=== PATIENT | female | born 1985 | race African-American/Black ===

== ENCOUNTER 2019-11-30 10:13 | Emergency (ER) | payer OTHER ==
--- NOTE | 2019-11-30 11:15 | EDM.PDOC ---
ED HPI GENERAL MEDICAL PROBLEM - General Chief Complaint: Respiratory Problem Stated Complaint: FEVER,SORE THROAT,COUGH Time Seen by Provider: 11/30/19 10:45 Source of Information: Reports: Patient, RN Notes Reviewed ([phone]) - History of Present Illness INITIAL COMMENTS - FREE TEXT/NARRATIVE: 34 year old female comes in with cough, grant, sore throat for the past 5 to 7 days. No fever, occasional mild chills, occasional Wayne. Her throat did hurt to swallow, no better. About 36 days . No known covid exposure. 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 Musculoskeletal History: Reports: None Neurological History: Reports: None Psychiatric History: Reports: None Endocrine/Metabolic History: Reports: None Hematologic History: Reports: None Immunologic History: Reports: None Oncologic (Cancer) History: Reports: None Dermatologic History: Reports: None - Infectious Disease History Infectious Disease History: Reports: None - Past Surgical History Female Surgical History: Reports: Section Social & Family History - Tobacco Use Smoking Status *Q: Never Smoker - Caffeine Use Caffeine Use: Reports: Tea - Recreational Drug Use Recreational Drug Use: No ED ROS GENERAL - Review of Systems Review Of Systems: See Below Constitutional: Reports: Chills. Denies: Fever HEENT: Reports: Rhinitis, Throat Pain Respiratory: Reports: Cough. Denies: Shortness of Breath Cardiovascular: Denies: Chest Pain GI/Abdominal: Reports: Nausea. Denies: Abdominal Pain, Vomiting Musculoskeletal: Reports: No Symptoms Skin: Reports: No Symptoms Neurological: Reports: Headache (gone) ED EXAM, GENERAL - Physical Exam Exam: See Below General Appearance: Alert, No Apparent Distress Eye Exam: Bilateral Eye: PERRL Throat/Mouth: Normal Inspection Head: Atraumatic Neck: Supple Respiratory/Chest: No Respiratory Distress, Lungs Clear, Normal Breath Sounds. No: Wheezing Cardiovascular: Regular Rate, Rhythm GI/Abdominal: Non-Tender, Other (appropriately distended) Extremities: No: Leg Pain Neurological: Alert, No Motor/Sensory Deficits Skin Exam: Warm, Dry Course - Vital Signs Last Recorded V/S: Last Vital Signs Temp 98.2 F 11/30/19 10:30 Pulse 85 11/30/19 10:30 Resp 16 11/30/19 10:30 BP 113/77 11/30/19 10:30 Pulse Ox 100 11/30/19 10:30 - Orders/Labs/Meds Orders: Active Orders 24 hr Category Date Time Status CORONAVIRUS COVID-19 PCR PHL [MREF] Routine Lab 11/30/19 11:15 Received Isolation [COMM] Routine Oth 11/30/19 11:04 Ordered - Re-Assessments/Exams Free Text/Narrative Re-Assessment/Exam: 11/30/19 14:30 Rapid strep pos., influenza screen neg. Because of her and URI sx in addition to sore throat have done a covid screen. Discharge instr. as documented. Departure - Departure Time of Disposition: 11:38 Disposition: Home, Self-Care 01 Condition: Fair Clinical Impression: Pharyngitis, Upper respiratory infection, Third trimester - Discharge Information Prescriptions: Penicillin V Potassium 500 mg PO Q8HR #30 tab Instructions: Third Trimester of , [id number], Upper Respiratory Infection, Adult, [id number], Pharyngitis, [id number] Referrals: Juliette Lancaster MD [Primary Care Provider] - Forms: ED Department Discharge Additional Instructions: Rest, drink plenty of fluids, your strep screen today was positive. PenVK 500 mg 3 times daily. That prescription has been sent electronically to [facility]. To be safe a Covid screen has been done to check for the covid virus. That will be sent later today to the [facility]. results may be back as soon as later tomorrow but more likely Sunday or . and you will be called results when available. Follow up clinic as needed , return to ED as needed if symptoms worsening in any way. Sepsis Event Note - Evaluation Sepsis Screening Result: No Definite Risk - Focused Exam Vital Signs: Vital Signs Temp Pulse Resp BP Pulse Ox 11/30/19 10:30 98.2 F 85 16 113/77 100 Date Exam was Performed: 11/30/19 Time Exam was Performed: 14:27 - My Orders Last 24 Hours: My Active Orders 11/30/19 11:04 Isolation [COMM] Routine 11/30/19 11:15 CORONAVIRUS COVID-19 PCR PHL [MREF] Routine - Assessment/Plan Last 24 Hours: My Active Orders 11/30/19 11:04 Isolation [COMM] Routine 11/30/19 11:15 CORONAVIRUS COVID-19 PCR PHL [MREF] Routine
== END 2019-11-30 12:25 | disposition home or self-care (01) ==
LOC: JD.ED 10:13
DX: O99.511 Diseases of the respiratory system complicating pregnancy, first trimester (principal); J02.9 Acute pharyngitis, unspecified; Z3A.01 Less than 8 weeks gestation of pregnancy; Z20.828 Contact with and (suspected) exposure to other viral communicable diseases
CPT/HCPCS: 87430; 87804; 99283; U0002

== ENCOUNTER 2019-12-15 10:47 | Inpatient (IN) | payer OTHER ==
[2019-12-15] MEDS ORDERED: Sodium Chloride 0.9% 10 ML Syringe FLUSH PRN (10:50)
[2019-12-15] MEDS ORDERED: Citric Acid/Sodium Citrate Solution 30 ML Cup PO ONE (10:50)
[2019-12-15] MEDS ORDERED: ceFAZolin 2 GM in Premix Bag 1 BAG IV ONE (10:50)
[2019-12-15] MEDS ORDERED: Metoclopramide 10 MG/2 ML SDV IVPUSH ONE (10:50)
--- NOTE | 2019-12-15 10:58 | PCM.LDHP ---
L&D History of Present Illness - General Date of Service: 12/15/19 Admit Problem/Dx: Patient Status Order with Admit Dx/Problem 12/15/19 10:50 Patient Status [ADT] Routine Admission Diagnosis/Problem Admission Diagnosis/Problem Decreased movement affecting management of mother, antepartum Source of Information: Patient History Limitations: Reports: No Limitations - History of Present Illness Introduction:: Patient is a 34 y/o at 38 2/7 wks who presents for due to persistent decreased FM and non reactive NST in clinic. Last week Sunday seen on L&D for concerns of decreased FM. NST eventually reactive. However, patient still had decreased FM over the weekend. 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: Ectopic , : 4 Para: 2 LMP (Approximate): - Past Surgical History Female Surgical History: Reports: Section (x2) Social & Family History - Tobacco Use Smoking Status *Q: Never Smoker - Caffeine Use Caffeine Use: Reports: Tea - Alcohol Use Alcohol Use History: No - Recreational Drug Use Recreational Drug Use: No H&P Review of Systems - Review of Systems: Review Of Systems: See Below General: Reports: No Symptoms Pulmonary: Reports: No Symptoms Cardiovascular: Reports: No Symptoms Gastrointestinal: Reports: No Symptoms Genitourinary: Reports: No Symptoms Musculoskeletal: Reports: No Symptoms Psychiatric: Reports: No Symptoms Neurological: Reports: No Symptoms L&D Exam - Exam Exam: See Below - OB Specific Heart Tones: Present Heart Tones per Min: 130 Heart Rate (FHR) Variability: Moderate (6-25 bmp) Presentation: Unable to Assess - Exam General: Alert, Oriented, Cooperative Lungs: Clear to Auscultation, Normal Respiratory Effort Cardiovascular: Regular Rate, Regular Rhythm GI/Abdominal Exam: Soft, Non-Tender Genitourinary: Normal external exam Extremities: Normal Inspection Skin: Warm, Dry, Intact - Problem List (1) 38 weeks gestation of SNOMED Code(s): 50152639 ICD Code: Z3A.38 - 38 WEEKS GESTATION OF Status: Acute Current Visit: Yes (2) Decreased movement SNOMED Code(s): 164792906 ICD Code: O36.8190 - DECREASED MOVEMENTS, UNSP TRIMESTER, UNSP Status : Acute Current Visit: Yes Qualifiers: Fetus number: single or unspecified fetus Trimester: third trimester Qualified Code(s): O36.8130 - Decreased movements, third trimester, not applicable or unspecified (3) Non-reactive NST (non-stress test) SNOMED Code(s): 579556358, 497014138 ICD Code: O28.8 - OTHER ABNORMAL FINDINGS ON SCREENING OF MOTHER Status: Acute Current Visit: Yes Problem List Initiated/Reviewed/Updated: Yes Orders Last 24hrs: Active Orders 24 hr Category Date Time Status Patient Status [ADT] Routine ADT 12/15/19 10:50 Ordered Communication Order [RC] ROUTINE Care 12/15/19 10:50 Ordered Heart Tones [RC] PER UNIT ROUTINE Care 12/15/19 10:50 Ordered Non Stress Test [RC] PER UNIT ROUTINE Care 12/15/19 10:50 Ordered Peripheral IV Care [RC] . DIRECTED Care 12/15/19 10:51 Ordered Procedure Site Prep Instruct [RC] ASDIRECTED Care 12/15/19 10:50 Ordered Verify Patient Consent Obtain [RC] PER UNIT ROUTINE Care 12/15/19 10:50 Ordered Vital Signs [RC] PFP Care 12/15/19 10:50 Ordered CBC W/O DIFF,HEMOGRAM [HEME] Stat Lab 12/15/19 10:50 Ordered GROUP B STREP BY PCR [MOLEC] Stat Lab 12/15/19 10:50 Ordered RAPID PLASMA REAGIN,RPR [CHEM] Routine Lab 12/15/19 10:50 Ordered TYPE AND SCREEN [BBK] Routine Lab 12/15/19 10:50 Ordered Citric Acid/Sodium Citrate [Bicitra Solution] Med 12/15/19 10:50 Once 30 ml PO ONETIME ONE Lactated Ringers @ 125 MLS/HR(1000ml) Med 12/15/19 11:00 Ordered Lactated Ringers [Ringers, Lactated] 1,000 ml IV ASDIRECTED Metoclopramide [Reglan] Med 12/15/19 10:50 Once 10 mg IVPUSH ONETIME ONE Oxytocin/Lactated Ringers [Pitocin in LR 10 Units/1,000 Med 12/15/19 11:00 Ordered ML] 10 unit in 1,000 ml IV ASDIRECTED Sodium Chloride 0.9% [Saline Flush] Med 12/15/19 10:50 Ordered 10 ml FLUSH ASDIRECTED PRN ceFAZolin [Ancef] 2 gm Med 12/15/19 10:50 Ordered Premix Bag 1 bag IV ONETIME Peripheral IV Insertion Adult [OM.PC] Routine Oth 12/15/19 10:50 Ordered Schedule Procedure [COMM] Per Unit Routine Oth 12/15/19 10:50 Ordered Resuscitation Status Routine Resus Stat 12/15/19 10:50 Ordered Assessment/Plan Comment:: Persistent decreased FM. Will proceed with RLTCS given non reactive NST at term. * Labs * NPO * Consent reviewed and signed * Ancef OCTOR * Anesthesia and Peds made aware
[2019-12-15] MEDS ORDERED: Oxytocin/Lactated Ringers 10 UNIT/1,000 ML BAG IV SCH (11:00)
[2019-12-15] MEDS: Lactated Ringers 1,000 ML IV SCH ×2 (11:38→14:25)
--- NOTE | 2019-12-15 12:24 | PCM.PREANE ---
Preanesthetic Assessment - Procedure Proposed Procedure: Repeat - Anesthesia/Transfusion/Family Hx Anesthesia History: Prior Anesthesia Reaction Type of Anesthesia Reaction: Other (see below) (Weakness following her last C- Section. Difficulty getting up from lying down position. ) Family History of Anesthesia Reaction: No - Review of Systems General: No Symptoms Pulmonary: No Symptoms Cardiovascular: No Symptoms Gastrointestinal: Nausea (Continuous since first trimester) Neurological: No Symptoms Other: Reports: None - Physical Assessment Mental Status: Alert & Oriented x3 Airway Class: Mallampati = 2 Dentition: Reports: Normal Dentition Thyro-Mental Finger Breadths: 3 Mouth Opening Finger Breadths: 3 ROM/Head Extension: Full Lungs: Clear to Auscultation, Normal Respiratory Effort Cardiovascular: Regular Rate, Regular Rhythm - Lab Values: Laboratory Last Values WBC 9.39 K/mm3 (3.98-10.04) 12/15/19 11:05 RBC 4.44 M/mm3 (3.98-5.22) 12/15/19 11:05 Hgb 12.6 gm/dl (11.2-15.7) 12/15/19 11:05 Hct 40.2 % (34.1-44.9) 12/15/19 11:05 MCV 90.5 fl (79.4-94.8) 12/15/19 11:05 MCH 28.4 pg (25.6-32.2) 12/15/19 11:05 MCHC 31.3 g/dl (32.2-35.5) L 12/15/19 11:05 RDW Std Deviation 46.2 fL (36.4-46.3) 12/15/19 11:05 Plt Count 209 K/mm3 (182-369) 12/15/19 11:05 MPV 12.0 fl (9.4-12.3) 12/15/19 11:05 Blood Type O POSITIVE 12/15/19 11:05 - Allergies Allergies/Adverse Reactions: Allergies Allergy/AdvReac Type Severity Reaction Status Date / Time No Known Allergies Allergy Verified 12/12/19 12:59 - Anesthesia Plan Pre-Op Medication Ordered: Antacids, Other (Zofran, Metoclopramide, Bicitra) - Acknowledgements Anesthesia Type Planned: Spinal Pt an Appropriate Candidate for the Planned Anesthesia: Yes Alternatives and Risks of Anesthesia Discussed w Pt/Guardian: Yes Pt/Guardian Understands and Agrees with Anesthesia Plan: Yes Additional Comments: Wing has had two previous C-Sections under spinal anesthesia. With her first C-Sections she tolerated the procedure and spinal well. The second C- section she experienced difficulty getting up to get out of bed. Once up she was able to walk around without issue. No imaging was done. She did complete physical therapy and regained her strength. I spoke with Wing and her regarding a spinal versus general anesthetic. They both prefer a spinal anesthetic and understand the risks of a spinal. 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 , - Infectious Disease History Infectious Disease History: Reports: None - Past Surgical History Female Surgical History: Reports: Section (x2) - SUBSTANCE USE Smoking Status *Q: Never Smoker Recreational Drug Use History: No - HOME MEDS Home Medications: Home Meds Ferrous Sulfate [Iron] 0 mg PO BID 11/30/19 [History] ZVV258/Iron Fumarate/FA/DSS [ 19 Tablet] 1 tab PO DAILY 11/30/19 [ History] - CURRENT (IN HOUSE) MEDS Current Meds: Current Medications Lactated Ringer's (Ringers, Lactated) 1,000 mls @ 125 mls/hr IV ASDIRECTED MATTY Last Admin: 12/15/19 11:38 Dose: 125 mls/hr Oxytocin/Lactated Ringer's (Pitocin In Lr 10 Units/1,000 Ml) 10 unit in 1,000 mls @ 100 mls/hr IV ASDIRECTED MATTY; Protocol Sodium Chloride (Saline Flush) 10 ml FLUSH ASDIRECTED PRN PRN Reason: Keep Vein Open Discontinued Medications Citric Acid/Sodium Citrate (Bicitra Solution) 30 ml PO ONETIME ONE Stop: 12/15/19 10:51 Last Admin: 12/15/19 12:03 Dose: 30 ml Cefazolin Sodium/Dextrose 2 gm (/ Premix) 50 mls @ 100 mls/hr IV ONETIME ONE Stop: 12/15/19 11:19 Metoclopramide HCl (Reglan) 10 mg IVPUSH ONETIME ONE Stop: 12/15/19 10:51 Last Admin: 12/15/19 12:00 Dose: 10 mg
--- NOTE | 2019-12-15 12:28 | PCM.OPNOTE ---
- General Post-Op/Procedure Note Date of Surgery/Procedure: 12/15/19 Operative Procedure(s): Repeat low transverse with scar revision Findings: Large keloid scar noted from prior Pfannenstiel incisions. Minimal scar tissue between the rectus and anterior abdominal wall. Minimal scarring between the uterus and bladder. Baby boy in a vertex presentation, APGARS 8 &9. Wt of 7 lbs 13 oz. Grossly normal appearance of the uterus, fallopian tubes, and ovaries. Pre Op Diagnosis: History of x2. 38 2/7 wks. Decreased FM - non reactive NST Post-Op Diagnosis: Same Anesthesia Technique: Spinal Primary Surgeon: Juliette Lancaster Anesthesia Provider: Memo Wilson Pathology: Cord blood collected. Placenta discarded. Fluid Replacement, Intraop: 2,300 Output, Urine Amount: 100 EBL in mLs: 500 Complications: None Condition: Good Free Text/Narrative:: The risks, benefits, indications, potential complications, and alternatives were explained to the patient and informed consent obtained. After induction of anesthesia, the patient was placed in a supine position and then draped and prepped in the usual sterile manner. A Pfannenstiel incision was made and carried down through the subcutaneous tissue to the fascia. Fascial incision was made and extended transversely. The fascia was from the underlying rectus tissue superiorly and inferiorly. The peritoneum was identified and entered. Peritoneal incision was extended longitudinally. The utero-vesical peritoneal reflection was incised transversely and the bladder flap was bluntly freed from the lower uterine segment. A low transverse uterine incision was made sharply with a scalpel and extended bluntly in a cephalocaudad direction. A baby boy was delivered from a vertex presentation with APGARS as above. After the umbilical cord was clamped and cut cord blood was obtained for evaluation. The placenta was removed intact and appeared normal. The uterus was exteriorized and cleared of clots. The uterine outline, tubes and ovaries appeared normal. The uterine incision was closed with running locked sutures of 0 Vicryl. Hemostasis was noted. The uterus was then placed back into the abdomen. The infracolic gutters were cleared of blood clots. The fascia was then reapproximated with running sutures of 0 Vicryl. The subcutaneous tissue was irrigated with sterile warm normal saline, hemostasis obtained with cautery. The keloid scar from prior c-sections was grasped with several allis clamps and excised sharply with a scalpel. The skin was then reapproximated with running Subcuticular 4-0 monocryl sutures. Instrument, sponge, and needle counts were correct prior the abdominal closure and at the conclusion of the case.
[2019-12-15] MEDS ORDERED: Ketorolac 30 MG/ML SDV ONE (12:31)
[2019-12-15] MEDS ORDERED: Morphine PF 1 MG/ML Amp ONE (12:31)
[2019-12-15] MEDS ORDERED: Oxytocin 10 Units/1 ML SDV ONE (12:31)
[2019-12-15] MEDS ORDERED: ceFAZolin 1 GM Vial ONE (12:33)
[2019-12-15] MEDS ORDERED: Lactated Ringers 1,000 ML ONE ×2 (12:50→13:28)
--- NOTE | 2019-12-15 14:09 | PCM.POSTAN ---
POST ANESTHESIA ASSESSMENT - MENTAL STATUS Mental Status: Alert, Oriented - VITAL SIGNS Vital Signs: Last Vital Signs Temp 97.3 F 12/15/19 14:00 Pulse 74 12/15/19 14:00 Resp 14 12/15/19 14:03 BP 107/57 L 12/15/19 14:00 Pulse Ox 100 12/15/19 14:03 - RESPIRATORY Respiratory Status: Respiratory Rate WNL, Airway Patent, O2 Saturation Stable - CARDIOVASCULAR CV Status: Pulse Rate WNL, Blood Pressure Stable - GASTROINTESTINAL GI Status: No Symptoms - PAIN Pain Score: 0 (post SAB) - POST OP HYDRATION Hydration Status: Adequate & Stable
[2019-12-15] MEDS ORDERED: Dextrose 5%-Lactated Ringers 1,000 ML IV SCH (15:17)
[2019-12-15] MEDS ORDERED: Docusate Sodium 100 MG Cap PO PRN (15:17)
[2019-12-15] MEDS ORDERED: Acetaminophen/oxyCODONE 325-5 MG Tab PO PRN ×2 (15:17)
[2019-12-15] MEDS ORDERED: Ondansetron 4 MG/2 ML SDV IV PRN (15:17)
[2019-12-15] MEDS ORDERED: ePHEDrine 50 MG/ML SDV IVPUSH PRN (15:17)
[2019-12-15] MEDS ORDERED: diphenhydrAMINE 50 MG/ML SDV IVPUSH PRN (15:17)
[2019-12-15] MEDS: Ketorolac 30 MG/ML SDV IVPUSH SCH (19:55)
[2019-12-16] MEDS: Ketorolac 30 MG/ML SDV IVPUSH SCH ×2 (02:12→09:08)
--- NOTE | 2019-12-16 07:16 | PCM.PNPP ---
- General Info Date of Service: 12/16/19 Functional Status: Reports: Pain Controlled, Tolerating Diet, Ambulating, Urinating - Review of Systems General: Reports: No Symptoms Pulmonary: Reports: No Symptoms Cardiovascular: Reports: No Symptoms Gastrointestinal: Reports: Abdominal Pain (managed with medications ) Genitourinary: Reports: No Symptoms Musculoskeletal: Reports: No Symptoms Neurological: Reports: No Symptoms - Patient Data Vital Signs - Most Recent: Last Vital Signs Temp 36.9 C 12/16/19 05:39 Pulse 63 12/16/19 05:39 Resp 16 12/16/19 07:00 BP 95/57 L 12/16/19 05:39 Pulse Ox 96 12/16/19 07:00 Weight - Most Recent: 72.121 kg I&O - Last 24 Hours: Intake & Output 12/15/19 12/16/19 12/16/19 22:59 06:59 14:59 Intake Total 1030 Output Total 800 1400 Balance 230 -1400 Lab Results - Last 24 Hours: Laboratory Results - last 24 hr 12/15/19 12/15/19 12/15/19 Range/Units 11:05 11:05 11:05 WBC 9.39 (3.98-10.04) K/mm3 RBC 4.44 (3.98-5.22) M/mm3 Hgb 12.6 (11.2-15.7) gm/dl Hct 40.2 (34.1-44.9) % MCV 90.5 (79.4-94.8) fl MCH 28.4 (25.6-32.2) pg MCHC 31.3 L (32.2-35.5) g/dl RDW Std Deviation 46.2 (36.4-46.3) fL Plt Count 209 (182-369) K/mm3 MPV 12.0 (9.4-12.3) fl Neut % (Auto) (34.0-71.1) % Lymph % (Auto) (19.3-51.7) % [place] % (Auto) (4.7-12.5) % Eos % (Auto) (0.7-5.8) Baso % (Auto) (0.1-1.2) % Neut # (Auto) (1.56-6.13) K/mm3 Lymph # (Auto) (1.18-3.74) K/mm3 [place] # (Auto) (0.24-0.36) K/mm3 Eos # (Auto) (0.04-0.36) K/mm3 Baso # (Auto) (0.01-0.08) K/mm3 RPR Non-reactive (NONREACTIVE) Blood Type O POSITIVE Gel Antibody Screen Positive 12/15/19 Range/Units 12:00 WBC 9.85 (3.98-10.04) K/mm3 RBC 3.84 L (3.98-5.22) M/mm3 Hgb 10.8 L D (11.2-15.7) gm/dl Hct 34.4 (34.1-44.9) % MCV 89.6 (79.4-94.8) fl MCH 28.1 (25.6-32.2) pg MCHC 31.4 L (32.2-35.5) g/dl RDW Std Deviation 45.0 (36.4-46.3) fL Plt Count 187 (182-369) K/mm3 MPV 12.2 (9.4-12.3) fl Neut % (Auto) 61.5 (34.0-71.1) % Lymph % (Auto) 24.7 (19.3-51.7) % [place] % (Auto) 11.3 (4.7-12.5) % Eos % (Auto) 1.7 (0.7-5.8) Baso % (Auto) 0.1 (0.1-1.2) % Neut # (Auto) 6.06 (1.56-6.13) K/mm3 Lymph # (Auto) 2.43 (1.18-3.74) K/mm3 [place] # (Auto) 1.11 H (0.24-0.36) K/mm3 Eos # (Auto) 0.17 (0.04-0.36) K/mm3 Baso # (Auto) 0.01 (0.01-0.08) K/mm3 RPR (NONREACTIVE) Blood Type Gel Antibody Screen Med Orders - Current: Current Medications Diphenhydramine HCl (Benadryl) 25 mg IVPUSH Q6H PRN PRN Reason: Itching or Nausea Docusate Sodium (Colace) 100 mg PO Q12H PRN PRN Reason: Constipation Ephedrine Sulfate (Ephedrine Sulfate) 5 mg IVPUSH SEECOMMENT PRN PRN Reason: Other Ibuprofen (Motrin) 600 mg PO Q6H PRN PRN Reason: mild pain or fever Ketorolac Tromethamine (Toradol) 30 mg IVPUSH Q6H [facility] Stop: 12/16/19 07:31 Last Admin: 12/16/19 02:12 Dose: 30 mg Ondansetron HCl (Zofran) 4 mg IV Q8H PRN PRN Reason: Nausea/Vomiting Last Admin: 12/15/19 19:49 Dose: 4 mg Oxycodone/Acetaminophen (Percocet 325-5 Mg) 1 tab PO Q4H PRN PRN Reason: Pain (moderate 4-6) Oxycodone/Acetaminophen (Percocet 325-5 Mg) 2 tab PO Q4H PRN PRN Reason: Pain (severe 7-10) Discontinued Medications Cefazolin Sodium (Ancef) Confirm Administered Dose 2 gm .ROUTE .STK-MED ONE Stop: 12/15/19 12:34 Citric Acid/Sodium Citrate (Bicitra Solution) 30 ml PO ONETIME ONE Stop: 12/15/19 10:51 Last Admin: 12/15/19 12:03 Dose: 30 ml Cefazolin Sodium/Dextrose 2 gm (/ Premix) 50 mls @ 100 mls/hr IV ONETIME ONE Stop: 12/15/19 11:19 Lactated Ringer's (Ringers, Lactated) 1,000 mls @ 125 mls/hr IV ASDIRECTED [facility] Last Admin: 12/15/19 14:25 Dose: 125 mls/hr Oxytocin/Lactated Ringer's (Pitocin In Lr 10 Units/1,000 Ml) 10 unit in 1,000 mls @ 100 mls/hr IV ASDIRECTED [facility]; Protocol Lactated Ringer's (Ringers, Lactated) Confirm Administered Dose 1,000 mls @ as directed .ROUTE .STK-MED ONE Stop: 12/15/19 12:51 Lactated Ringer's (Ringers, Lactated) Confirm Administered Dose 1,000 mls @ as directed .ROUTE .STK-MED ONE Stop: 12/15/19 13:29 Dextrose/Lactated Ringer's (Dextrose 5%-Lactated Ringers) 1,000 mls @ 125 mls/ hr IV ASDIRECTED [facility] Stop: 12/15/19 23:16 Last Admin: 12/15/19 17:48 Dose: 125 mls/hr Ketorolac Tromethamine (Toradol) Confirm Administered Dose 30 mg .ROUTE .STK- MED ONE Stop: 12/15/19 12:32 Metoclopramide HCl (Reglan) 10 mg IVPUSH ONETIME ONE Stop: 12/15/19 10:51 Last Admin: 12/15/19 12:00 Dose: 10 mg Miscellaneous Medication (Phenylephrine 1 Mg/10 Ml-Ns) Confirm Administered Dose 1 mg IV .STK-MED ONE Stop: 12/15/19 13:02 Morphine Sulfate (Duramorph Pf) Confirm Administered Dose 1 mg .ROUTE .STK-MED ONE Stop: 12/15/19 12:32 Oxytocin (Pitocin) Confirm Administered Dose 20 unit .ROUTE .STK-MED ONE Stop: 12/15/19 12:32 Sodium Chloride (Saline Flush) 10 ml FLUSH ASDIRECTED PRN PRN Reason: Keep Vein Open - Infant Interaction Disposition, : [place] in Room with Family Interaction: Holding Infant Feeding: Attempted ; Nursed Fair/Poor Support Person: - Recovery Exam Fundal Tone: Firm Fundal Level: At Umbilicus Fundal Placement: Midline Lochia Amount: Small Lochia Color: Rubra/Red Perineum Description: Intact, Minimal Bruising/Swelling Episiotomy/Laceration: None Bladder Status: Indwelling Catheter in Place Urinary Elimination: Indwelling Catheter - Exam General: Alert, Oriented, Cooperative Lungs: Clear to Auscultation, Normal Respiratory Effort Cardiovascular: Regular Rate, Regular Rhythm GI/Abdominal Exam: Soft, Tender (appropriate) Extremities: Normal Inspection Skin: Warm, Dry, Intact Wound/Incisions: Drainage (small amount of bloody drainage on dressing) - Problem List & Annotations (1) 38 weeks gestation of SNOMED Code(s): 94710011 Code(s): Z3A.38 - 38 WEEKS GESTATION OF Status: Acute Current Visit: No (2) Decreased movement SNOMED Code(s): 070056953 Code(s): O36.8190 - DECREASED MOVEMENTS, UNSP TRIMESTER, UNSP Status : Acute Current Visit: No Qualifiers: Fetus number: single or unspecified fetus Trimester: third trimester Qualified Code(s): O36.8130 - Decreased movements, third trimester, not applicable or unspecified (3) Non-reactive NST (non-stress test) SNOMED Code(s): 060549636, 886376637 Code(s): O28.8 - OTHER ABNORMAL FINDINGS ON SCREENING OF MOTHER Status: Acute Current Visit: No (4) S/P repeat low transverse SNOMED Code(s): 366802266, 38548578, 852296722, 716502402, 303198887 Code(s): Z98.891 - HISTORY OF UTERINE SCAR FROM PREVIOUS SURGERY Status: Acute Current Visit: Yes - Problem List Review Problem List Initiated/Reviewed/Updated: Yes - My Orders Last 24 Hours: My Active Orders 12/15/19 10:50 Resuscitation Status Routine 12/15/19 11:05 ANTIBODY IDENTIFICATION [BBK] Routine TYPE AND SCREEN [BBK] Routine 12/15/19 11:12 GROUP B STREP BY PCR [MOLEC] Stat 12/15/19 15:17 Activity as Tolerated [RC] .Routine Antiembolic Devices [RC] PER UNIT ROUTINE Communication Order [RC] PER UNIT ROUTINE Communication Order [RC] PER UNIT ROUTINE Intake and Output [RC] Q4H Notify Provider Intake and Out [RC] ASDIRECTED RT Incentive Spirometry [RC] Q2HWA Vital Signs [RC] Q1H Acetaminophen/oxyCODONE [Percocet 325-5 MG] 1 tab PO Q4H PRN Acetaminophen/oxyCODONE [Percocet 325-5 MG] 2 tab PO Q4H PRN Docusate Sodium [Colace] 100 mg PO Q12H PRN Ondansetron [Zofran] 4 mg IV Q8H PRN diphenhydrAMINE [Benadryl] 25 mg IVPUSH Q6H PRN ePHEDrine [ePHEDrine sulfate] 5 mg IVPUSH SEECOMMENT PRN Assess Lochia [WOMSER] Per Unit Routine Assess Uterine Involution [WOMSER] Per Unit Routine Breast Pump [WOMSER] Per Unit Routine Heat Therapy [OM.PC] Per Unit Routine Peripheral IV Discontinue [OM.PC] Routine Sequential Compression Device [OM.PC] Per Unit Routine 12/15/19 19:30 Ketorolac [Toradol] 30 mg IVPUSH Q6H 12/15/19 Lunch Regular Diet [DIET] 12/16/19 13:30 Ibuprofen [Motrin] 600 mg PO Q6H PRN 12/16/19 13:46 Urinary Catheter Removal [RC] Per Unit Routine - Assessment Assessment:: POD#1 - Plan Plan:: * Routine cares * Breast feeding * Discharge home tomorrow likely
--- NOTE | 2019-12-16 07:48 | PCM48HPAN ---
Post Anesthesia Note - EVALUATION WITHIN 48HRS OF ANESTHETIC Vital Signs in Normal Range: Yes Patient Participated in Evaluation: Yes Respiratory Function Stable: Yes Airway Patent: Yes Cardiovascular Function Stable: Yes Hydration Status Stable: Yes Pain Control Satisfactory: Yes Nausea and Vomiting Control Satisfactory: Yes Mental Status Recovered: Yes Vital Signs: Last Vital Signs Temp 36.9 C 12/16/19 05:39 Pulse 63 12/16/19 05:39 Resp 16 12/16/19 07:00 BP 95/57 L 12/16/19 05:39 Pulse Ox 96 12/16/19 07:00 - COMMENTS/OBSERVATIONS Free Text/Narrative:: no anesthesia complications noted
[2019-12-16] MEDS: Ibuprofen 600 MG Tab PO PRN ×2 (16:28→22:05)
--- NOTE | 2019-12-17 06:39 | PCM.PNPP ---
- General Info Date of Service: 12/17/19 Functional Status: Reports: Pain Controlled, Tolerating Diet, Ambulating, Urinating - Review of Systems General: Reports: No Symptoms Pulmonary: Reports: No Symptoms Cardiovascular: Reports: No Symptoms Gastrointestinal: Reports: Abdominal Pain (managed with medications ) Genitourinary: Reports: No Symptoms Musculoskeletal: Reports: No Symptoms Neurological: Reports: No Symptoms - Patient Data Vital Signs - Most Recent: Last Vital Signs Temp 36.8 C 12/17/19 04:01 Pulse 70 12/17/19 04:01 Resp 16 12/17/19 04:01 BP 96/41 L 12/17/19 04:01 Pulse Ox 98 12/17/19 04:01 Weight - Most Recent: 72.121 kg I&O - Last 24 Hours: Intake & Output 12/16/19 12/16/19 12/17/19 14:59 22:59 06:59 Intake Total 240 Output Total 1850 950 Balance -1610 -950 Lab Results - Last 24 Hours: Laboratory Results - last 24 hr 12/15/19 Range/Units 11:12 Group B Strep (PCR) Negative (NEGATIVE) Med Orders - Current: Current Medications Diphenhydramine HCl (Benadryl) 25 mg IVPUSH Q6H PRN PRN Reason: Itching or Nausea Docusate Sodium (Colace) 100 mg PO Q12H PRN PRN Reason: Constipation Ephedrine Sulfate (Ephedrine Sulfate) 5 mg IVPUSH SEECOMMENT PRN PRN Reason: Other Ibuprofen (Motrin) 600 mg PO Q6H PRN PRN Reason: mild pain or fever Last Admin: 12/16/19 22:05 Dose: 600 mg Ondansetron HCl (Zofran) 4 mg IV Q8H PRN PRN Reason: Nausea/Vomiting Last Admin: 12/15/19 19:49 Dose: 4 mg Oxycodone/Acetaminophen (Percocet 325-5 Mg) 1 tab PO Q4H PRN PRN Reason: Pain (moderate 4-6) Oxycodone/Acetaminophen (Percocet 325-5 Mg) 2 tab PO Q4H PRN PRN Reason: Pain (severe 7-10) Discontinued Medications Cefazolin Sodium (Ancef) Confirm Administered Dose 2 gm .ROUTE .STK-MED ONE Stop: 12/15/19 12:34 Citric Acid/Sodium Citrate (Bicitra Solution) 30 ml PO ONETIME ONE Stop: 12/15/19 10:51 Last Admin: 12/15/19 12:03 Dose: 30 ml Cefazolin Sodium/Dextrose 2 gm (/ Premix) 50 mls @ 100 mls/hr IV ONETIME ONE Stop: 12/15/19 11:19 Lactated Ringer's (Ringers, Lactated) 1,000 mls @ 125 mls/hr IV ASDIRECTED [facility] Last Admin: 12/15/19 14:25 Dose: 125 mls/hr Oxytocin/Lactated Ringer's (Pitocin In Lr 10 Units/1,000 Ml) 10 unit in 1,000 mls @ 100 mls/hr IV ASDIRECTED [facility]; Protocol Lactated Ringer's (Ringers, Lactated) Confirm Administered Dose 1,000 mls @ as directed .ROUTE .STK-MED ONE Stop: 12/15/19 12:51 Lactated Ringer's (Ringers, Lactated) Confirm Administered Dose 1,000 mls @ as directed .ROUTE .STK-MED ONE Stop: 12/15/19 13:29 Dextrose/Lactated Ringer's (Dextrose 5%-Lactated Ringers) 1,000 mls @ 125 mls/ hr IV ASDIRECTED [facility] Stop: 12/15/19 23:16 Last Admin: 12/15/19 17:48 Dose: 125 mls/hr Ketorolac Tromethamine (Toradol) Confirm Administered Dose 30 mg .ROUTE .STK- MED ONE Stop: 12/15/19 12:32 Ketorolac Tromethamine (Toradol) 30 mg IVPUSH Q6H [facility] Stop: 12/16/19 07:31 Last Admin: 12/16/19 09:08 Dose: 30 mg Metoclopramide HCl (Reglan) 10 mg IVPUSH ONETIME ONE Stop: 12/15/19 10:51 Last Admin: 12/15/19 12:00 Dose: 10 mg Miscellaneous Medication (Phenylephrine 1 Mg/10 Ml-Ns) Confirm Administered Dose 1 mg IV .STK-MED ONE Stop: 12/15/19 13:02 Morphine Sulfate (Duramorph Pf) Confirm Administered Dose 1 mg .ROUTE .STK-MED ONE Stop: 12/15/19 12:32 Oxytocin (Pitocin) Confirm Administered Dose 20 unit .ROUTE .[employer] ONE Stop: 12/15/19 12:32 Sodium Chloride (Saline Flush) 10 ml FLUSH ASDIRECTED PRN PRN Reason: Keep Vein Open - Infant Interaction Disposition, : [place] in Room with Family Infant Interaction: Holding Infant Feeding: Attempted ; Nursed Fair/Poor Support Person: - Recovery Exam Fundal Tone: Firm Fundal Level: 1 Fingerbreadths Below Umbilicus Fundal Placement: Midline Lochia Amount: Small Lochia Color: Rubra/Red Perineum Description: Intact, Minimal Bruising/Swelling Episiotomy/Laceration: None Bladder Status: Voiding Urinary Elimination: Voided - Exam General: Alert, Oriented, Cooperative Lungs: Clear to Auscultation, Normal Respiratory Effort Cardiovascular: Regular Rate, Regular Rhythm GI/Abdominal Exam: Soft, Non-Tender Extremities: Normal Inspection Skin: Warm, Dry, Intact Wound/Incisions: Healing Well, No Drainage - Problem List & Annotations (1) 38 weeks gestation of SNOMED Code(s): 77534646 Code(s): Z3A.38 - 38 WEEKS GESTATION OF Status: Acute Current Visit: No (2) Decreased movement SNOMED Code(s): 789884862 Code(s): O36.8190 - DECREASED MOVEMENTS, UNSP TRIMESTER, UNSP Status : Acute Current Visit: No Qualifiers: Fetus number: single or unspecified fetus Trimester: third trimester Qualified Code(s): O36.8130 - Decreased movements, third trimester, not applicable or unspecified (3) Non-reactive NST (non-stress test) SNOMED Code(s): 933423476, 716807361 Code(s): O28.8 - OTHER ABNORMAL FINDINGS ON SCREENING OF MOTHER Status: Acute Current Visit: No (4) S/P repeat low transverse SNOMED Code(s): 762816122, 05334421, 248315024, 199335157, 258184079 Code(s): Z98.891 - HISTORY OF UTERINE SCAR FROM PREVIOUS SURGERY Status: Acute Current Visit: Yes - Problem List Review Problem List Initiated/Reviewed/Updated: Yes - My Orders Last 24 Hours: My Active Orders 12/16/19 13:30 Ibuprofen [Motrin] 600 mg PO Q6H PRN - Assessment Assessment:: POD#2 - Plan Plan:: * Routine cares * Breast feeding * Discharge home today
--- NOTE | 2019-12-17 07:46 | PCM.DCSUM1 ---
Discharge Summary - Discharge Data Discharge Date: 12/17/19 Discharge Disposition: Home, Self-Care 01 Condition: Good - Referral to Home Health Primary Care Physician: Juliette Lancaster MD - Discharge Diagnosis/Problem(s) (1) 38 weeks gestation of SNOMED Code(s): 34283181 ICD Code: Z3A.38 - 38 WEEKS GESTATION OF Status: Acute Current Visit: No (2) Decreased movement SNOMED Code(s): 466393135 ICD Code: O36.8190 - DECREASED MOVEMENTS, UNSP TRIMESTER, UNSP Status : Acute Current Visit: No Qualifiers: Fetus number: single or unspecified fetus Trimester: third trimester Qualified Code(s): O36.8130 - Decreased movements, third trimester, not applicable or unspecified (3) Non-reactive NST (non-stress test) SNOMED Code(s): 531292566, 497923243 ICD Code: O28.8 - OTHER ABNORMAL FINDINGS ON SCREENING OF MOTHER Status: Acute Current Visit: No (4) S/P repeat low transverse SNOMED Code(s): 501171501, 97596327, 855978427, 744332112, 785012093 ICD Code: Z98.891 - HISTORY OF UTERINE SCAR FROM PREVIOUS SURGERY Status: Acute Current Visit: Yes - Patient Summary/Data Operative Procedure(s) Performed: Repeat low transverse with scar revision Complications: None Consults: None Recommended Follow-up Testing/Procedures: Follow up in 3 weeks for check/post op check Hospital Course: 34 y/o at 38 2/7 wks who presented to clinic with decreased FM and Non reactive NST. Had been evaluated several days priro to this appt as well for similar complaints. Given persistent concerns and non reactive NST was taken for RLTCS. This was uncomplicated. See delivery note. did well and was discharged home on PPD#2 - Patient Instructions Diet: Regular Diet as Tolerated Activity: No Lifting Over 10 Pounds Activity, Other: Pelvic rest for 6 weeks Driving: Do Not Drive (while taking narcotics ) Showering/Bathing: May Shower, No Tub Bathing/Swimming Wound/Incision Care: Keep Operative Site/Wound Site Clean and Dry Notify Provider of: Fever, Increased Pain, Swelling and Redness, Drainage, Nausea and/or Vomiting - Discharge Plan *PRESCRIPTION DRUG MONITORING PROGRAM REVIEWED*: No *COPY OF PRESCRIPTION DRUG MONITORING REPORT IN PATIENT EPIFANIO: No Prescriptions/Med Rec: Acetaminophen/oxyCODONE [Percocet 325-5 MG] 1 - 2 tab PO Q4H PRN #25 tablet PRN Reason: Pain (Severe 7-10) Home Medications: Home Meds Prenat 115/Iron Fum/Folic/Dss [ 19 Tablet] 1 tab PO DAILY 11/30/19 [ History] Acetaminophen/oxyCODONE [Percocet 325-5 MG] 1 - 2 tab PO Q4H PRN #25 tablet [Rx] Docusate Sodium [Colace] 100 mg PO Q12H PRN cap 12/17/19 [Rx] Ibuprofen [Motrin] 600 mg PO Q6H PRN tablet 12/17/19 [Rx] Referrals: Juliette Lancaster MD [Primary Care Provider] - (3weeks check. Can be telehealth visit if pt desires) - Discharge Summary/Plan Comment DC Time >30 min.: No - Patient Data Vitals - Most Recent: Last Vital Signs Temp 36.8 C 12/17/19 04:01 Pulse 70 12/17/19 04:01 Resp 16 12/17/19 04:01 BP 96/41 L 12/17/19 04:01 Pulse Ox 98 12/17/19 04:01 Weight - Most Recent: 72.121 kg I&O - Last 24 hours: Intake & Output 12/16/19 12/17/19 12/17/19 22:59 06:59 14:59 Output Total 950 Balance -950 Lab Results - Last 24 hrs: Laboratory Results - last 24 hr 12/15/19 Range/Units 11:12 Group B Strep (PCR) Negative (NEGATIVE) Med Orders - Current: Current Medications Diphenhydramine HCl (Benadryl) 25 mg IVPUSH Q6H PRN PRN Reason: Itching or Nausea Docusate Sodium (Colace) 100 mg PO Q12H PRN PRN Reason: Constipation Ephedrine Sulfate (Ephedrine Sulfate) 5 mg IVPUSH SEECOMMENT PRN PRN Reason: Other Ibuprofen (Motrin) 600 mg PO Q6H PRN PRN Reason: mild pain or fever Last Admin: 12/16/19 22:05 Dose: 600 mg Ondansetron HCl (Zofran) 4 mg IV Q8H PRN PRN Reason: Nausea/Vomiting Last Admin: 12/15/19 19:49 Dose: 4 mg Oxycodone/Acetaminophen (Percocet 325-5 Mg) 1 tab PO Q4H PRN PRN Reason: Pain (moderate 4-6) Oxycodone/Acetaminophen (Percocet 325-5 Mg) 2 tab PO Q4H PRN PRN Reason: Pain (severe 7-10) Discontinued Medications Cefazolin Sodium (Ancef) Confirm Administered Dose 2 gm .ROUTE .STK-MED ONE Stop: 12/15/19 12:34 Citric Acid/Sodium Citrate (Bicitra Solution) 30 ml PO ONETIME ONE Stop: 12/15/19 10:51 Last Admin: 12/15/19 12:03 Dose: 30 ml Cefazolin Sodium/Dextrose 2 gm (/ Premix) 50 mls @ 100 mls/hr IV ONETIME ONE Stop: 12/15/19 11:19 Lactated Ringer's (Ringers, Lactated) 1,000 mls @ 125 mls/hr IV ASDIRECTED [facility] Last Admin: 12/15/19 14:25 Dose: 125 mls/hr Oxytocin/Lactated Ringer's (Pitocin In Lr 10 Units/1,000 Ml) 10 unit in 1,000 mls @ 100 mls/hr IV ASDIRECTED [facility]; Protocol Lactated Ringer's (Ringers, Lactated) Confirm Administered Dose 1,000 mls @ as directed .ROUTE .STK-MED ONE Stop: 12/15/19 12:51 Lactated Ringer's (Ringers, Lactated) Confirm Administered Dose 1,000 mls @ as directed .ROUTE .STK-MED ONE Stop: 12/15/19 13:29 Dextrose/Lactated Ringer's (Dextrose 5%-Lactated Ringers) 1,000 mls @ 125 mls/ hr IV ASDIRECTED [facility] Stop: 12/15/19 23:16 Last Admin: 12/15/19 17:48 Dose: 125 mls/hr Ketorolac Tromethamine (Toradol) Confirm Administered Dose 30 mg .ROUTE .STK- MED ONE Stop: 12/15/19 12:32 Ketorolac Tromethamine (Toradol) 30 mg IVPUSH Q6H [facility] Stop: 12/16/19 07:31 Last Admin: 12/16/19 09:08 Dose: 30 mg Metoclopramide HCl (Reglan) 10 mg IVPUSH ONETIME ONE Stop: 12/15/19 10:51 Last Admin: 12/15/19 12:00 Dose: 10 mg Miscellaneous Medication (Phenylephrine 1 Mg/10 Ml-Ns) Confirm Administered Dose 1 mg IV .STK-MED ONE Stop: 12/15/19 13:02 Morphine Sulfate (Duramorph Pf) Confirm Administered Dose 1 mg .ROUTE .STK-MED ONE Stop: 12/15/19 12:32 Oxytocin (Pitocin) Confirm Administered Dose 20 unit .ROUTE .STK-MED ONE Stop: 12/15/19 12:32 Sodium Chloride (Saline Flush) 10 ml FLUSH ASDIRECTED PRN PRN Reason: Keep Vein Open
== END 2019-12-17 10:45 | disposition home or self-care (01) | DRG 788 ==
LOC: JD.OB 10:47 → OBSVTOIN 10:47
PROVIDERS: ADMIT Obstetrics & Gynecology; ATTEND Obstetrics & Gynecology
PROC: 10D00Z1 Extraction of Products of Conception, Low, Open Approach (ICD-10-PCS; principal; 2019-12-15)
DX: O34.211 Maternal care for low transverse scar from previous cesarean delivery (principal); L91.0 Hypertrophic scar; O36.8130 Decreased fetal movements, third trimester, not applicable or unspecified; Z3A.38 38 weeks gestation of pregnancy; Z37.0 Single live birth
CPT/HCPCS: 01961; 36415; 59025; 85025; 85027; 86592; 86850; 86870; 86900; 86901; 87653; A9270-GY; J0690; J1885; J2274; J2370; J2405; J2590; J2765; J7120; J7121